=== PATIENT | female | born 1945 | race Caucasian/White ===

== ENCOUNTER 2021-11-29 08:10 | Day surgery (SDC) | payer MEDICARE ==
[2021-11-24 11:38] LABS: CLARITY,URINE CLEAR (Clear); COLOR,URINE STRAW (Yellow); GLUCOSE, URINE NEGATIVE (Neg); KETONES,URINE NEGATIVE (Neg); LEUKOCYTE ESTERASE ,URINE NEGATIVE (Neg); NITRITES, URINE NEGATIVE (Neg); OCCULT BLOOD,URINE NEGATIVE (Neg); PROTEIN,URINE NEGATIVE (Neg); UA COLLECTION TYPE CLN CATCH MIDSTREAM; UROBILINOGEN,URINE 0.2 E.U/dL (0.2-1.0)
[2021-11-24 11:39] LABS: BASOPHILS % (AUTO) 0.4 % (0-1); EOSINOPHILS % (AUTO) 0.4 % (0-6); LYMPHOCYTES # (AUTO) 2.5 X10'3 (1.1-4.8); LYMPHOCYTES % (AUTO) 30.6 % (21-51); MEAN CORPUSCULAR HEMOGLOBIN 29.8 PG (27.0-31.0); MEAN CORPUSCULAR HGB CONC 33.5 g/dL (33.0-36.5); MEAN CORPUSCULAR VOLUME 88.9 FL (78-98); MEAN PLATELET VOLUME 8.1 FL (7.4-10.4); MONOCYTES # (AUTO) 0.5 X10'3 (0-0.9); MONOCYTES % (AUTO) 6.6 % (2-12); NEUTROPHILS # (AUTO) 5.1 X10'3 (1.8-7.7); PRE OP HEMATOCRIT 39.3 % (35.0-45.0); PRE OP HEMOGLOBIN 13.1 g/dL (12.0-16.0); PRE OP PLATELET COUNT 274 X10'3 (140-440); RED BLOOD COUNT 4.41 X10'6 (4.20-5.60); RED CELL DISTRIBUTION WIDTH 15.9 % (11.5-14.5)
[2021-11-24 11:52] LABS: ALBUMIN 4.2 G/DL (3.4-5.0); ALBUMIN/GLOBULIN RATIO 1.2 (1.1-1.5); ALKALINE PHOSPHATASE 93 IU/L (46-116); BLOOD UREA NITROGEN 7 MG/DL (7-18); BUN/CREATININE RATIO 7.7 (6.6-38.0); CALCIUM 9.8 MG/DL (8.5-10.1); CHLORIDE 101 MMOL/L (99-107); CREATININE 0.91 MG/DL (0.40-0.90); PRE OP ALT 41 U/L (30-65); PRE OP ANION GAP 12 (8-16); PRE OP AST 32 U/L (10-37); PRE OP BILIRUB, TOTAL 0.6 MG/DL (0.0-1.0); PRE OP GLUCOSE 100 MG/DL (70-104); PRE OP SODIUM 143 MMOL/L (135-145); TOTAL CARBON DIOXIDE 30.5 MMOL/L (24-32); TOTAL PROTEIN 7.8 G/DL (6.4-8.2); eGFR 60 ML/MIN
[2021-11-24 11:58] LABS: PRE OP POTASSIUM 3.1 MMOL/L (3.4-5.1)
[2021-11-29] VITALS (12 sets, daily range): BP systolic 110–148; BP diastolic 55–82
[~2021-11-29] VITALS: Ht 167.6 cm; Wt 91.2 kg
[~2021-11-29 08:10] MED LIST: ACET-1008 PO; ADAL40PE5 SQ; AMLO5TAB16 PO; ASCO-134 PO; ATOR10TA70 PO; CALC-111 PO; DIPH25CA83 PO; FOLI1TAB27 PO; LACT1CAP65 PO; METH2.5T55 PO; MULT-1085 PO; OMEP20TA23 PO; PRE5T PO; PSEU120T55 PO; TRAM50TA2 PO; UBID200C18 PO; ZOLP5TAB8 PO; clindamycin-Cleocin 900mg/D5W 50 ML IV ONE; famotidine 20mg tablet PO ONE; ringers solution, lacted 1,000 ML IV SCH
[2021-11-29] MEDS ORDERED: BUPIVAcaine/PF 2.5 mg/ml (0.25%) 30ml vial ONE (11:24)
[2021-11-29] MEDS ORDERED: aprepitant 40mg capsule PO ONE (11:31)
[2021-11-29] MEDS ORDERED: dexamethasone sod phosphate 10mg/ml inj ONE (12:32)
[2021-11-29] MEDS ORDERED: sevoflurane 250ml liquid IH ONE (12:32)
[2021-11-29] MEDS ORDERED: fentaNYL/PF 50MCG/1 ML 2ML syringe ONE (12:44)
[2021-11-29] MEDS ORDERED: midazolam 1 mg/ML 2ml injection ONE (12:56)
[2021-11-29] MEDS ORDERED: hydrocortisone sod succ/PF 100mg/2ml inj. ONE ×2 (12:57→12:58)
[2021-11-29] MEDS ORDERED: ondansetron/PF 4mg/2ml inj ONE (12:58)
[2021-11-29] MEDS ORDERED: LIDOcaine 2% (20mg/ml) 5ml vial ONE (12:58)
[2021-11-29] MEDS ORDERED: rocuronium 10mg/ml inj IV ONE (12:58)
[2021-11-29] MEDS ORDERED: propofol inj 20 ML IV ONE (12:58)
[2021-11-29] MEDS ORDERED: hydrALAZINE 20mg/ml inj. IV PRN (14:30)
[2021-11-29] MEDS ORDERED: ondansetron/PF 4mg/2ml inj IV PRN (14:30)
[2021-11-29] MEDS ORDERED: acetaminophen 1,000mg/100ml IV 100 ML IV PRN (14:30)
[2021-11-29] MEDS ORDERED: fentaNYL/PF 50MCG/1 ML 2ML syringe IV PRN ×2 (14:30)
[2021-11-29] MEDS ORDERED: meperidine/PF 25mg/ml syringe IV PRN (14:30)
[2021-11-29] MEDS ORDERED: labetalol 20mg/4ml (5mg/ml) syringe IV PRN (14:30)
[2021-11-29] MEDS ORDERED: ringers solution, lacted 1,000 ML IV SCH (14:30)
[2021-11-29] MEDS ORDERED: proCHLORperazine 10 MG/2 ml inj IV PRN (14:30)
[2021-11-29] MEDS ORDERED: ketorolac tromethamine 15mg/ml inj. IV ONE (14:30)
[2021-11-29] MEDS ORDERED: HYDROmorphone/PF 0.2 MG/ML SYRINGE IV PRN ×2 (14:30)
--- NOTE | 2021-11-29 14:30 | NUR ---
Received from OR via [facility], accompanied by Anesthesiologist dr. Dolan and report given by Anesthesiolgist. Pt drowsy but responds to commands. VSS. on O2 mask at 8 LPM; sats at 100%. denies pain or discomfort. 20g in left hand
--- NOTE | 2021-11-29 16:30 | NUR ---
I HAVE REVIEWED D/C INSTRUCTIONS WITH PATIENT AND THEY HAVE VERBALIZED UNDERSTANDING OF INSTRUCTIONS. PATIENT D/C HOME WITH ALL BELONGINGS AND FAMILY GAVE TRANSPORT
== END 2021-11-29 16:18 | disposition home or self-care (01) ==
LOC: PAS 08:10
PROVIDERS: ATTEND Surgery
DX: D17.1 Benign lipomatous neoplasm of skin and subcutaneous tissue of trunk (principal); L72.3 Sebaceous cyst; L72.0 Epidermal cyst; Z79.899 Other long term (current) drug therapy; Z98.890 Other specified postprocedural states; Z20.822 Contact with and (suspected) exposure to COVID-19; Z88.0 Allergy status to penicillin; Z88.8 Allergy status to other drugs, medicaments and biological substances; Z90.710 Acquired absence of both cervix and uterus; J44.9 Chronic obstructive pulmonary disease, unspecified; M06.9 Rheumatoid arthritis, unspecified; Z96.641 Presence of right artificial hip joint
CPT/HCPCS: 11402; 21931; 36415; 80047; 80053; 81003; 82948; 85025; 87811; 93005; J0131; J1100; J1720; J2250; J2405; J2704; J3010; J3490; J7030; J7120; J8501; Z7506; Z7508; Z7512; 88304; A4618; A6449; A7000

== ENCOUNTER 2023-08-12 06:51 | Day surgery (SDC) | payer MEDICARE ==
[2023-08-06 15:27] LABS: BASOPHILS % (AUTO) 0.4 % (0-1); EOSINOPHILS # (AUTO) 0.1 X10'3 (0-0.9); EOSINOPHILS % (AUTO) 1.1 % (0-6); LYMPHOCYTES # (AUTO) 2.7 X10'3 (1.1-4.8); LYMPHOCYTES % (AUTO) 38.5 % (21-51); MEAN CORPUSCULAR HEMOGLOBIN 28.9 PG (27.0-31.0); MEAN CORPUSCULAR HGB CONC 33.4 g/dL (33.0-36.5); MEAN CORPUSCULAR VOLUME 86.4 FL (78-98); MONOCYTES # (AUTO) 0.7 X10'3 (0-0.9); MONOCYTES % (AUTO) 10.2 % (2-12); NEUTROPHILS # (AUTO) 3.5 X10'3 (1.8-7.7); NEUTROPHILS % (AUTO) 49.8 % (42-75); PRE OP HEMOGLOBIN 12.7 g/dL (12.0-16.0); PRE OP PLATELET COUNT 277 X10'3 (140-440); PRE OP WHITE BLOOD COUNT 7.1 10'3 (4.8-10.8)
[2023-08-06 15:45] LABS: ALBUMIN/GLOBULIN RATIO 1.1 (1.1-1.5); ALKALINE PHOSPHATASE 115 IU/L (46-116); BLOOD UREA NITROGEN 7 MG/DL (7-18); BUN/CREATININE RATIO 7.1 (10.0-20.0); CALCIUM 9.4 MG/DL (8.5-10.1); CHLORIDE 101 MMOL/L (99-107); CREATININE 0.99 MG/DL (0.40-0.90); PRE OP ALT 22 U/L (30-65); PRE OP ANION GAP 9 (8-16); PRE OP AST 21 U/L (10-37); PRE OP BILIRUB, TOTAL 0.6 MG/DL (0.0-1.0); PRE OP GLUCOSE 94 MG/DL (70-104); PRE OP POTASSIUM 3.6 MMOL/L (3.4-5.1); PRE OP SODIUM 135 MMOL/L (135-145); TOTAL PROTEIN 7.6 G/DL (6.4-8.2); eGFR 55 ML/MIN
[2023-08-12] VITALS (7 sets, daily range): BP systolic 122–147; BP diastolic 60–82; PULSE 83–92; RESP 15–30; TEMP 97.5; O2SAT 93–97
[~2023-08-12] VITALS: Ht 167.6 cm; Wt 85.2 kg
[~2023-08-12 06:51] MED LIST changes: +ABAT125A SQ; -ACET-1008 PO; -ADAL40PE5 SQ; -ATOR10TA70 PO; -CALC-111 PO; +CETI10CA PO; -DIPH25CA83 PO; -LACT1CAP65 PO; -METH2.5T55 PO; -MULT-1085 PO; -OMEP20TA23 PO; -PRE5T PO; -PSEU120T55 PO; +ROSU5TAB PO; -TRAM50TA2 PO; +TURM500C4 PO; -ZOLP5TAB8 PO; -clindamycin-Cleocin 900mg/D5W 50 ML IV ONE; -famotidine 20mg tablet PO ONE; -ringers solution, lacted 1,000 ML IV SCH
[2023-08-12] MEDS ORDERED: LIDOcaine 2% (20mg/ml) 5ml vial ONE (07:17)
[2023-08-12] MEDS ORDERED: ringers solution, lacted 1,000 ML IV SCH (07:35)
[2023-08-12] MEDS ORDERED: hydrALAZINE 20mg/ml inj. IV PRN (07:35)
[2023-08-12] MEDS ORDERED: labetalol 20mg/4ml (5mg/ml) syringe IV PRN (07:35)
[2023-08-12] MEDS ORDERED: morphine 4 MG/ML inj SYRINge IV PRN (07:35)
[2023-08-12] MEDS ORDERED: ondansetron/PF 4mg/2ml inj IV PRN (07:35)
[2023-08-12] MEDS ORDERED: morphine 2 MG/ML inj. syringe IV PRN (07:35)
[2023-08-12] MEDS: ringers solution, lacted 1,000 ML IV SCH (07:58)
[2023-08-12] MEDS: clindamycin-Cleocin 900mg/D5W 50 ML IV ONE (07:58)
[2023-08-12] MEDS: famotidine 20mg tablet PO ONE (07:58)
[2023-08-12] MEDS ORDERED: fentaNYL/PF 50MCG/1 ML 2ML syringe ONE (09:40)
[2023-08-12] MEDS ORDERED: midazolam 1 mg/ML 2ml injection ONE (09:40)
[2023-08-12] MEDS: BUPIVAcaine/PF 2.5mg/ml (0.25%) 10ml vial ONE (13:45)
[2023-08-12] MEDS: LIDOcaine 2% (20mg/ml) 5ml vial ONE (13:45)
== END 2023-08-12 11:19 | disposition home or self-care (01) ==
LOC: PAS 06:51
PROVIDERS: ATTEND Orthopaedic Surgery Hand Surgery
DX: M19.041 Primary osteoarthritis, right hand (principal); I10 Essential (primary) hypertension; E11.9 Type 2 diabetes mellitus without complications; J44.9 Chronic obstructive pulmonary disease, unspecified; E66.9 Obesity, unspecified; M81.0 Age-related osteoporosis without current pathological fracture; J45.909 Unspecified asthma, uncomplicated; G43.909 Migraine, unspecified, not intractable, without status migrainosus; Z79.899 Other long term (current) drug therapy; Z90.710 Acquired absence of both cervix and uterus; Z90.721 Acquired absence of ovaries, unilateral; Z96.641 Presence of right artificial hip joint; Z98.49 Cataract extraction status, unspecified eye; Z98.890 Other specified postprocedural states; Z68.30 Body mass index [BMI] 30.0-30.9, adult; Z88.0 Allergy status to penicillin; Z88.1 Allergy status to other antibiotic agents; Z88.8 Allergy status to other drugs, medicaments and biological substances; Z82.49 Family history of ischemic heart disease and other diseases of the circulatory system; Z81.8 Family history of other mental and behavioral disorders
CPT/HCPCS: 26860; 36415; 80053; 82948; 85025; 93005; A4215; A4618; A7000; C1713; C1769; J2001; J2250; J3010; J3490; J7030; J7120; Z7506; Z7512; Z7610